=== PATIENT | male | born 1970 | race Caucasian/White ===

== ENCOUNTER 2016-09-13 12:38 | Outpatient (CLI) | payer BC, OTHER | END 2016-09-13 12:39 | disposition home or self-care (01) | DX: R63.4 Abnormal weight loss (principal); R53.83 Other fatigue; I77.810 Thoracic aortic ectasia ==

== ENCOUNTER 2016-09-29 15:32 | Outpatient (CLI) | payer BC, OTHER ==
[2016-09-29] MEDS ORDERED: GADOBUTROL 7.5 MMOL/7.5 ML VIAL IVP ONE (16:42)
== END 2016-09-29 15:33 | disposition home or self-care (01) ==
DX: F68.8 Other specified disorders of adult personality and behavior (principal)
CPT/HCPCS: 70544; 70553; A9585

== ENCOUNTER 2017-01-01 11:20 | Outpatient (CLI) | payer BC, OTHER | END 2017-01-01 11:21 | disposition home or self-care (01) | LOC: SC 11:20 | PROVIDERS: ATTEND Internal Medicine Pulmonary Disease | DX: R53.83 Other fatigue (principal); G47.8 Other sleep disorders; G47.00 Insomnia, unspecified; R06.83 Snoring | CPT/HCPCS: 99203; 99212 ==

== ENCOUNTER 2021-06-27 02:45 | Emergency (ER) | payer BC, OTHER ==
[2021-06-27] MEDS ORDERED: HYDROmorphone 1 MG/ML CARPUJECT IVP STA (03:12)
[2021-06-27] MEDS ORDERED: ONDANSETRON 4 MG/2 ML VIAL IVP STA (03:13)
[2021-06-27] MEDS ORDERED: KETOROLAC 15 MG/ML VIAL IVP STA (03:13)
--- NOTE | 2021-06-27 03:18 | ED Physician Documentation ---
PD HPI ABD PAIN - Stated complaint Stated Complaint: R/L SIDE PX - Chief complaint Chief Complaint: Abd Pain - Additional information Additional information: He is getting over a upper respiratory infection and was feeling good this morning. Then around 7:00 last night developed sudden pelvic pain, left worse than right. There is associated with slight nausea. He had diarrhea few days ago but it is gone. No fevers. No history of abdominal surgeries. Review of Systems Constitutional: reports: Reviewed and negative Eyes: reports: Reviewed and negative Ears: reports: Reviewed and negative Nose: reports: Reviewed and negative PD PAST MEDICAL HISTORY - Present Medications Home Medications: Ambulatory Orders Medication Instructions Recorded Confirmed Apixaban [Eliquis] 1 tab PO BID #60 tablet 06/27/21 Benzonatate [Tessalon] 100 mg PO DAILY 06/27/21 06/27/21 HYDROcod/ACETAM 5/325 [[place] 5/325] 1 - 2 tab PO Q6H PRN #15 tablet 06/27/21 Pseudoephedrine HCl [Sudogest] 60 mg PO DAILY 06/27/21 06/27/21 guaiFENesin [Mucus ER] 600 mg PO DAILY 06/27/21 06/27/21 - Allergies Allergies/Adverse Reactions: Allergies Allergy/AdvReac Type Severity Reaction Status Date / Time No Known Drug Allergies Allergy Verified 06/27/21 03:06 PD ED PE NORMAL - Vitals Vital signs reviewed: Yes - General General: Alert and oriented X 3, Other (He appears uncomfortable and prefers to lay right lateral decubitus curled up into a ball.) - Cardiac Cardiac: RRR, No murmur - Respiratory Respiratory: No respiratory distress, Clear bilaterally - Abdomen Abdomen: Normal bowel sounds, Soft, Non tender - Neuro Neuro: Alert and oriented X 3, Normal speech Results - Vitals Vitals: Vital Signs - 24 hr 06/27/21 02:49 Temperature 36.8 C Heart Rate 79 Respiratory 18 Rate Blood Pressure 150/95 H O2 Saturation 97 Oxygen O2 Source Room air - EKG (time done) 0451 Rate: Rate (enter#) Rhythm: Atrial fibrillation (about 1/2 afib and 1/2 NSR) [place]: Normal Ischemia: Non specific changes. No: ST elevation c/w ischemia, ST depression - Labs Labs: Laboratory Tests 06/27/21 06/27/21 06/27/21 03:20 03:28 03:28 WBC 5.5 RBC 4.83 Hgb 14.8 Hct 43.2 MCV 89.4 MCH 30.6 MCHC 34.3 RDW 11.7 L Plt Count 187 MPV 10.6 Neut # (Auto) 3.3 Lymph # (Auto) 1.5 Whiteside # (Auto) 0.5 Eos # (Auto) 0.1 Baso # (Auto) 0.0 Absolute Nucleated RBC 0.00 Nucleated RBC % 0.0 Sodium 131 L Potassium 3.2 L Chloride 95 L Carbon Dioxide 26 Anion Gap 10.0 BUN 9 Creatinine 0.8 Estimated GFR (MDRD) 102 Glucose 145 H Calcium 9.0 Total Bilirubin 0.6 AST 27 ALT 32 Alkaline Phosphatase 74 Total Protein 6.6 L Albumin 4.0 Globulin 2.6 Albumin/Globulin Ratio 1.5 Lipase 29 Urine Color YELLOW Urine Clarity CLEAR Urine pH 5.5 Ur Specific [place] >=1.030 H Urine Protein NEGATIVE Urine Glucose (UA) NEGATIVE Urine Ketones NEGATIVE Urine Occult Blood TRACE-INTA Urine Nitrite NEGATIVE Urine Bilirubin NEGATIVE Urine Urobilinogen 0.2 (NORMAL) Ur Leukocyte Esterase NEGATIVE Ur Microscopic Review NOT INDICATED Urine Culture Comments NOT INDICATED PD MEDICAL DECISION MAKING - ED course ED course: 51-year-old gentleman with sudden onset pelvic pain starting at 7 PM last night found to be due to a left renal infarction. Case was discussed by phone with Dr. Cordero, vascular surgery in [place] who did not feel that at this point given the timeframe it was necessary for him to have any intervention done. Agrees with anticoagulation, especially in light of the incidentally and probably causative we found atrial fibrillation. Incidental findings on the CT were discussed with the patient. Need for follow-up was also discussed. Departure - Departure Disposition: 01 Home, Self Care Clinical Impression: Renal infarct, Atrial fibrillation Condition: Good Record reviewed to determine appropriate education?: Yes Instructions: Atrial Fibrillation Dc Prescriptions: Apixaban [Eliquis] 1 tab PO BID #60 tablet HYDROcod/ACETAM 5/325 [[place] 5/325] 1 - 2 tab PO Q6H PRN #15 tablet PRN Reason: Pain Comments: You were found today to have a renal infarction, that is part of your left kidney got clotted off, and we think that is likely due to to a clot breaking off your heart from atrial fibrillation. The main treatment for this is that I am starting blood thinners, you got a first dose today and I am sending the prescription to the [facility]. You should follow-up with your primary care physician, consider heme-onc and cardiology referrals. Return for new or worsening symptoms. As we discussed, incidental findings on the CT were notable for diverticula in the colon and what is likely a liver hemangioma but that will need further work-up with your physician as well. I am prescribing a short course of narcotic pain medication for you. These are potentially dangerous and addictive medications that should be used carefully. These medications may constipate you. Take an vckg-xus-hjezcpw stool softener (docusate) twice daily with plenty of water while taking these medications. If you go 24 hours without a bowel movement, take unto-zca-oyumnpo miralax, per package instructions. Do not drink or drive while taking these medications. If you received narcotic or sedating medications while in the emergency department, do not drive for 24 hours. Store this medication in a safe, secure place and out of reach of children. It is a violation of federal law to give or sell this medication to another person or to use in a manner other than prescribed. The ED will not refill narcotic prescriptions, including prescriptions lost or stolen. To dispose of unwanted medications: 1. [facility] at [address] in [facility] has a medication drop box. They accept prescription medications (in pill form) Sunday through Sunday 9:00 a.m. to 5:00 p.m. 2. The [facility] [employer] accepts prescription medications (in pill form only) for disposal year round. Call for more information. 3. Contact the [facility] for the next [facility] sponsored prescription drug collection event. , [phone], or [phone]; Note that many narcotic pain relievers also contain Tylenol/acetaminophen. Please ensure that your total dose of acetaminophen from all sources does not exceed 3 g (3000 mg) per day.
[2021-06-27 03:31] LABS: BASOPHILS % (AUTO) 0.7 %; EOSINOPHILS # (AUTO) 0.1 10^3/uL (0.0-0.7); EOSINOPHILS % (AUTO) 2.4 %; HCT - HEMATOCRIT 43.2 % (42.0-52.0); HGB - HEMOGLOBIN 14.8 g/dL (14.0-18.0); LYMPHOCYTES # (AUTO) 1.5 10^3/uL (1.5-3.5); MEAN CORPUSCULAR HEMOGLOBIN 30.6 pg (27.0-31.0); MEAN CORPUSCULAR HGB CONC 34.3 g/dL (32.0-36.0); MEAN CORPUSCULAR VOLUME 89.4 fL (80.0-94.0); MEAN PLATELET VOLUME 10.6 fL (7.4-11.4); MONOCYTES # (AUTO) 0.5 10^3/uL (0.0-1.0); MONOCYTES % (AUTO) 9.6 %; NEUTROPHILS # (AUTO) 3.3 10^3/uL (1.5-6.6); NEUTROPHILS % (AUTO) 60.3 %; PLT - PLATELET COUNT 187 10^3/uL (130-450); RED BLOOD COUNT 4.83 10^6/uL (4.70-6.10); RED CELL DISTRIBUTION WIDTH 11.7 % (12.0-15.0); WHITE BLOOD COUNT 5.5 x10^3/uL (4.8-10.8)
[2021-06-27 03:41] LABS: BILIRUBIN,URINE NEGATIVE (NEGATIVE); GLUCOSE, URINE (UA) NEGATIVE (NEGATIVE); KETONES,URINE (UA) NEGATIVE (NEGATIVE); LEUKOCYTE ESTERASE, URINE NEGATIVE (NEGATIVE); NITRITE,URINE NEGATIVE (NEGATIVE); OCCULT BLOOD,URINE TRACE-INTA (NEGATIVE); PH,URINE 5.5 PH (5.0-7.5); PROTEIN,URINE NEGATIVE (NEGATIVE); UROBILINOGEN,URINE 0.2 (NORMAL) E.U./dL (NORMAL)
[2021-06-27 03:43] LABS: CLARITY,URINE CLEAR (CLEAR)
[2021-06-27 03:43] LABS: ALBUMIN/GLOBULIN RATIO 1.5 (1.0-2.2); BILIRUBIN,TOTAL 0.6 mg/dL (0.2-1.0); CREATININE 0.8 mg/dL (0.6-1.2); POTASSIUM 3.2 mmol/L (3.5-5.0); TOTAL PROTEIN 6.6 g/dL (6.7-8.2)
[2021-06-27] MEDS ORDERED: POTASSIUM CHLORIDE 20 MEQ TABLET PO STA (03:47)
[2021-06-27] MEDS ORDERED: SODIUM CHLORIDE 0.9% 1,000 ML IV STA (03:47)
[2021-06-27] MEDS ORDERED: iohexoL-300 100 ML VIAL ONE (04:03)
[2021-06-27] MEDS ORDERED: iohexoL-300 100 ML VIAL IVP ONE (04:32)
[2021-06-27] MEDS ORDERED: APIXABAN 5 MG TABLET PO STA (05:23)
[2021-06-27] MEDS ORDERED: HYDROcod/ACET 5/325 Prepack 4 PO STA (05:35)
[2021-06-27 06:19] VITALS: BP 157/90
--- NOTE | 2021-06-27 08:06 | CT Report ---
PROCEDURE: Abdomen/Pelvis W INDICATIONS: IV only, LLQ pain CONTRAST: IV CONTRAST: Isovue 300 ml: 100 PO CONTRAST: *NO PO CONTRAST TECHNIQUE: After the administration of contrast, 5 mm thick sections acquired from the diaphragms to the sym physis. 5 mm thick coronal and sagittal reformats were acquired. For radiation dose reduction, the following was used: automated exposure control, adjustment of mA and/or kV according to patient size . COMPARISON: None. FINDINGS: Image quality: Excellent. ABDOMEN: Lung bases: Lung bases are clear. Heart size is normal. Solid organs: Liver and spleen are normal in size and enhancement. 2.3 cm hemangioma noted in the ri ght lobe of the liver. Gallbladder is within normal limits Biliary system is non dilated. Pancreas enhances normally. No adrenal nodules. Kidneys demonstrate normal size without hydronephrosis. Ther e is a wedge-shaped hypoenhancing lesion in the superior pole left kidney most compatible with renal infarct. Peritoneum and bowel: Bowel loops demonstrate normal wall thickness and caliber. Scattered diverticu li noted in the colon without evidence of diverticulitis. No free fluid or air. Nodes and vessels: No retroperitoneal or mesenteric adenopathy by size criteria. Aorta and inferior vena cava are normal in size. Miscellaneous: No ventral hernias. PELVIS: Genitourinary: Bladder wall thickness is normal. Miscellaneous: No inguinal hernias or adenopathy. Bones: No suspicious bony lesions. No vertebral body compression fractures. Spine degenerative dis c disease and facet arthropathy are noted. . Grade 1 L5-S1 isthmic spondylolisthesis. IMPRESSION: 1. Wedge-shaped perfusion defect in the upper pole the left kidney compatible with renal infarct. 2. Colonic diverticulosis without diverticulitis. 3. No free fluid or free air. 4. No dilated loops of bowel. Reviewed by: Candi Wallace MD, PhD on 06/27/2021 8:04 AM PST Approved by: Candi Wallace MD, PhD on 06/27/2021 8:04 AM PST Station ID: [id number]
== END 2021-06-27 05:40 | disposition home or self-care (01) ==
LOC: ED 02:45
DX: N28.0 Ischemia and infarction of kidney (principal); I48.91 Unspecified atrial fibrillation; Z79.01 Long term (current) use of anticoagulants
CPT/HCPCS: 36415; 74177; 80053; 81003; 83690; 85025; 93005; 96374; 96375; 99283; 99284; A9270; J1170; Q9967; 81001; 87086

== ENCOUNTER 2022-05-13 14:16 | Outpatient (CLI) | payer BC, OTHER ==
--- NOTE | 2022-05-15 09:26 | MRI Report ---
PROCEDURE: SHOULDER WO - LT INDICATIONS: LEFT SHOULDER INJURY TECHNIQUE: Noncontrast oblique coronal T2 fast spin echo with fat saturation, oblique sagittal T1 spin echo and T2 fast spin echo with fat saturation, axial T1 spin echo and T2 fast spin echo with fat saturation a nd gradient echo through the shoulder. COMPARISON: None. FINDINGS: Image quality: Excellent. Rotator cuff: There is mild to moderate supraspinatus and infraspinatus tendinosis without a signific ant tear. The teres minor and subscapularis tendons are intact. There is no significant rotator cuff muscle atrophy. Bones and bursae: No acute trabecular bone injury or fracture. Partial-thickness cartilage irregulari ty is seen in the central posterior glenoid. Postsurgical changes are seen at the acromioclavicular j oint without recurrent narrowing of the supraspinatus outlet. Trace subacromial/subdeltoid bursal flu id is present. There is no significant glenohumeral joint effusion. Capsule and soft tissues: There is a subtle nondisplaced tear at the posterosuperior labrum. The prox imal biceps long head tendon is intact. There is effacement of the normal fat signal in the rotator i nterval. The midline inferior glenohumeral ligaments are mildly thickened. IMPRESSION: 1.Suboptimal the superior labrum. 2.Mild to moderate supraspinatus and infraspinatus tendinosis. No significant rotator cuff tendon tea r. 3.Mild grade II chondromalacia in the glenohumeral joint. 4.Postsurgical changes at the acromioclavicular joint without recurrent narrowing of the supraspinatu s outlet. 5.Partial effacement of the rotator interval fat and mild thickening of the middle and inferior gleno humeral ligaments are nonspecific, but can be seen in the setting of the clinical syndrome of adhesiv e capsulitis. Reviewed by: Hunter Mohr MD on 05/15/2022 9:25 AM PST Approved by: Hunter Mohr MD on 05/15/2022 9:25 AM PST Station ID: [id number]
== END 2022-05-13 14:17 | disposition home or self-care (01) ==
LOC: DI 14:16
PROVIDERS: ATTEND Family Medicine
DX: M94.212 Chondromalacia, left shoulder (principal); M75.92 Shoulder lesion, unspecified, left shoulder

== ENCOUNTER 2022-06-15 12:23 | Outpatient (CLI) | payer BC, OTHER ==
--- NOTE | 2022-06-15 14:28 | MRI Report ---
PROCEDURE: CERVICAL SPINE WO INDICATIONS: CERVICAL RADICULOPATHY TECHNIQUE: Noncontrast sagittal T1 spin echo and T2 fast spin echo, sagittal STIR, foraminal oblique sagittal T2 fast spin echo, and axial gradient echo or T2 fast spin echo through the cervical spine. COMPARISON: Correlation is made with the prior brain MRI report only (no images) 09/21/2016. FINDINGS: Image quality: Diagnostic. Alignment and Curvature: There is normal bony alignment. Bone Marrow: Marrow demonstrates normal overall signal. Spinal Cord: Visualized spinal cord has normal size and signal. No cerebellar tonsillar herniation. Paraspinous Soft Tissues: No paravertebral masses. Prevertebral soft tissues are normal in thicknes s. C2-C3: Normal in appearance. C3-C4: The disc height is relatively well preserved. Mild to moderate disc osteophyte complex is seen, which is eccentric to the right. There is a central/right disc osteophyte protrusion seen. Mil d facet hypertrophy is seen. Moderate to severe bilateral neuroforaminal narrowing can be seen. Mod erate central canal narrowing is seen. Associated mass effect is seen upon the ventral spinal cord. C4-C5: The disc height is well-preserved. There is loss of disc signal seen. Mild to moderate disc o steophyte complex is seen. Mild to moderate facet hypertrophy is seen. There is moderate to severe bi lateral neuroforaminal narrowing seen, left worse than right. Mild to moderate central canal narrowin g is seen. C5-C6: Moderate loss of disc height and signal are seen. At least moderate disc osteophyte complex is seen, which is eccentric to the right. There is a central disc osteophyte protrusion seen, which has protruding components into both lateral recesses, extending into both neural foramina, as on seri es 3 image 29. Moderate facet hypertrophy is seen. There is severe bilateral neuroforaminal narrowi ng seen. Moderate to severe central canal narrowing is seen. Associated mass effect is seen upon the ventral spinal cord. C6-C7: Mild to moderate loss of disc height and disc signal can be seen. Moderate disc osteophyte co mplex is seen, which is eccentric to the left. There is a central disc osteophyte protrusion seen. Mo derate bilateral facet hypertrophy can be seen, right worse than left. Severe bilateral neuroforamina l narrowing can be seen. Moderate central canal narrowing is seen. Associated mass effect is seen upon the ventral spinal cord. C7-T1: No significant abnormality is seen. IMPRESSION: Multiple levels of significant cervical spine degenerative change can be seen, including severe bilat eral neuroforaminal narrowing at C5-C6 and C6-C7. Reviewed by: Moreno García MD on 06/15/2022 1:27 PM [place] Approved by: Moreno García MD on 06/15/2022 1:27 PM [facility] Station ID: [id number]
== END 2022-06-15 12:24 | disposition home or self-care (01) ==
LOC: DI 12:23
PROVIDERS: ATTEND Family Medicine
DX: M47.22 Other spondylosis with radiculopathy, cervical region (principal); M48.02 Spinal stenosis, cervical region; M25.511 Pain in right shoulder